=== PATIENT | female | born 1980 | race Caucasian/White ===

== ENCOUNTER → 2018-10-12 | Outpatient (CLI) | payer MEDICAID ==
[~2018-10-12] MED LIST: CEFPODOXIME PR200 M1; FOLIC ACID1 MG; IBUPROFEN 400400 M2 PO; PROTONIX40 M2; RANITIDINE 150150 M1 PO; TUMS PO; VITAMIN B-1100 M1
[2018-10-12 16:42] LABS: ABSOLUTE EOSINOPHILS 0.2 thou/uL (0.0-0.7); ABSOLUTE LYMPHOCYTES 1.1 thou/uL (0.8-5.3); ABSOLUTE MONOCYTES 0.3 thou/uL (0.0-1.2); ABSOLUTE NEUTROPHILS 1.7 thou/uL (1.6-8.1); BASOPHILS 0.9 %; EOSINOPHILS 4.8 %; HEMATOCRIT 30.7 % (37.0-47.0); HEMOGLOBIN 10.5 gm/dL (12.0-15.0); LYMPHOCYTES 32.9 %; MCH 32.2 pg (26.0-34.0); MCHC 34.3 g/dL (28.0-37.0); MCV 93.8 fL (80.0-100.0); MONOCYTES 8.2 %; MPV 6.8 fl. (7.2-11.1); NUCLEATED RBCS 0 /100WBC; PLATELET COUNT* 146 thou/uL (150-400); POLYS 53.2 %; RBC 3.27 mil/uL (4.20-5.00); RDW-CV 13.8 % (10.5-14.5); WBC 3.2 thou/uL (4.0-11.0)
[2018-10-12 16:50] LABS: INR 1.3; PROTIME 13.4 Seconds (9.20-11.50)
[2018-10-12 16:57] LABS: ALBUMIN 3.5 g/dL (3.4-5.0); CREATININE 0.9 mg/dL (0.6-1.3); POTASSIUM 4.1 mmol/L (3.5-5.1); TOTAL BILIRUBIN 1.7 mg/dL (<0.1-1.0); TOTAL PROTEIN 8.7 g/dL (6.4-8.2)
== END ==
LOC: M.LAB 16:26
PROVIDERS: Internal Medicine Gastroenterology
DX: K70.30 Alcoholic cirrhosis of liver without ascites (principal)

== ENCOUNTER 2018-11-09 13:32 | Inpatient (IN) | payer MEDICAID ==
[2018-11-09] VITALS (11 sets, daily range): BP systolic 113–138; BP diastolic 56–74
[~2018-11-09] VITALS: Ht 175.3 cm; Wt 52.6 kg
[~2018-11-09 13:32] MED LIST changes: -ALDACTONE100 MG PO; -BACLOFEN 10MG T10 MG PO; -CIPRO500 MG PO; -ENSURE COMPACT118 ML PO; -ERGOCALCIF50000 UNIT PO; -FOLIC ACID1 MG PO; -HUMALOG100 UNIT/1 SUBQ; -LACTULOSE10 GM/152 PO; -LANTUS SUBQ; -LASIX 40 MG TAB40 M2 PO; -NEURONTIN 300300 M1 PO; -ONDANSETRON HCL4 M2 PO; -PANCREALIPASE PO; -PROBIOTIC1 EAC1 PO; -TRAMADOL 50 MG50 MG PO; -VITAMIN B-1100 M1 PO; -XIFAXAN550 M1 PO; -ZINC SULFATE 2220 M1 PO
[2018-11-09 14:23] LABS: ABSOLUTE EOSINOPHILS 0.1 thou/uL (0.0-0.7); ABSOLUTE LYMPHOCYTES 0.5 thou/uL (0.8-5.3); ABSOLUTE MONOCYTES 0.1 thou/uL (0.0-1.2); ABSOLUTE NEUTROPHILS 1.1 thou/uL (1.6-8.1); BASOPHILS 1.3 %; EOSINOPHILS 3.8 %; HEMATOCRIT 31.5 % (37.0-47.0); HEMOGLOBIN 10.3 gm/dL (12.0-15.0); LYMPHOCYTES 25.1 %; MCH 30.6 pg (26.0-34.0); MCHC 32.6 g/dL (28.0-37.0); MCV 93.8 fL (80.0-100.0); MONOCYTES 7.2 %; MPV 8.8 fl. (7.2-11.1); NUCLEATED RBCS 0 /100WBC; PLATELET COUNT* 89 thou/uL (150-400); POLYS 62.6 %; RBC 3.35 mil/uL (4.20-5.00); RDW-CV 13.7 % (10.5-14.5)
[2018-11-09 14:25] LABS: WBC 1.8 thou/uL (4.0-11.0)
[2018-11-09 14:28] LABS: APTT 32.4 Seconds (25.0-31.3); INR 1.3; PROTIME 13.3 Seconds (9.20-11.50)
[2018-11-09] MEDS ORDERED: BACLOFEN 10MG T10 MG PO (14:31)
[2018-11-09] MEDS ORDERED: ENSURE COMPACT118 ML PO (14:33)
[2018-11-09] MEDS ORDERED: CIPRO500 MG PO (14:33)
[2018-11-09] MEDS ORDERED: ERGOCALCIF50000 UNIT PO (14:34)
[2018-11-09] MEDS ORDERED: FOLIC ACID1 MG PO (14:34)
[2018-11-09] MEDS ORDERED: LASIX 40 MG TAB40 M2 PO (14:34)
[2018-11-09] MEDS ORDERED: PROBIOTIC1 EAC1 PO (14:35)
[2018-11-09] MEDS ORDERED: NEURONTIN 300300 M1 PO (14:35)
[2018-11-09] MEDS ORDERED: ONDANSETRON HCL4 M2 PO (14:36)
[2018-11-09] MEDS ORDERED: LACTULOSE10 GM/152 PO (14:36)
[2018-11-09] MEDS ORDERED: XIFAXAN550 M1 PO (14:37)
[2018-11-09] MEDS ORDERED: PANCREALIPASE PO (14:37)
[2018-11-09] MEDS ORDERED: VITAMIN B-1100 M1 PO (14:38)
[2018-11-09] MEDS ORDERED: ALDACTONE100 MG PO (14:38)
[2018-11-09] MEDS ORDERED: TRAMADOL 50 MG50 MG PO (14:39)
[2018-11-09] MEDS ORDERED: ZINC SULFATE 2220 M1 PO (14:39)
[2018-11-09 14:42] LABS: ANION GAP 8 mmol/L (7-16); BUN 23 mg/dL (7-18); CALCIUM 9.4 mg/dL (8.5-10.1); CHLORIDE 86 mmol/L (98-107); CO2 26 mmol/L (21-32); CREATININE 1.5 mg/dL (0.6-1.3); POTASSIUM 4.3 mmol/L (3.5-5.1); SODIUM 120 mmol/L (136-145)
[2018-11-09 14:45] LABS: GLUCOSE 998 mg/dL (70-99)
[2018-11-09 14:49] LABS: ALBUMIN 3.4 g/dL (3.4-5.0); ALKALINE PHOSPHATASE 262 U/L (46-116); NT-PRO BRAIN NAT PEPTIDE 61 pg/mL (<300); SGOT 27 U/L (15-37); SGPT 26 U/L (30-65); TOTAL BILIRUBIN 1.5 mg/dL (<0.1-1.0); TOTAL PROTEIN 8.1 g/dL (6.4-8.2); TROPONIN-I LEVEL <0.06 ng/mL (<0.06)
[2018-11-09 15:16] LABS: PCO2 34.1 mmHg (35.0-45.0); PO2 96.5 mmHg (75.0-100.0); pH 7.418 (7.340-7.450)
[2018-11-09 15:17] LABS: BE -2.4 mmol/L (-2 to +3); HCO3 21.5 mmol/L (22.0-26.0)
[2018-11-09 16:20] LABS: URINE BILIRUBIN NEGATIVE (Negative); URINE BLOOD NEGATIVE (Negative); URINE CLARITY CLEAR; URINE COLOR YELLOW; URINE GLUCOSE-RANDOM 3+ (Negative); URINE KETONES NEGATIVE (Negative); URINE LEUKOCYTES-REFLEX NEGATIVE (Negative); URINE NITRITE-REFLEX NEGATIVE (Negative); URINE PROTEIN NEGATIVE (Negative); URINE SPECIFIC GRAVITY <= 1.005 (1.005-1.030); URINE UROBILINOGEN 0.2 E.U./dl (0.2-1.0)
[2018-11-09 18:31] LABS: MAGNESIUM 1.5 mg/dL (1.8-2.4)
--- NOTE | 2018-11-09 19:22 | NUR ---
PATIENT ADMITTED TO ROOM 6 IN ICU. AT BEDSIDE AT THIS TIME. PAIN IS BETTER MANAGED AT THIS TIME. ALL QUESTIONS ANSWERED. NO NAUSEA OR SHORTNESS OF AIR. INSULIN GTT INFUSING WITH BLOOD SUGAR CHECKS Q1H. FLUIDS INFUSING. BED IN LOWEST POSITION, CALL LIGHT IN REACH.
--- NOTE | 2018-11-09 21:55 | NUR ---
pt. taken via wheelchair to ct at this time.
[2018-11-10] VITALS (17 sets, daily range): BP systolic 103–127; BP diastolic 45–70
[2018-11-10 03:27] LABS: ABSOLUTE EOSINOPHILS 0.1 thou/uL (0.0-0.7); ABSOLUTE LYMPHOCYTES 0.7 thou/uL (0.8-5.3); ABSOLUTE MONOCYTES 0.2 thou/uL (0.0-1.2); ABSOLUTE NEUTROPHILS 1.2 thou/uL (1.6-8.1); BASOPHILS 0.6 %; EOSINOPHILS 4.9 %; HEMATOCRIT 25.8 % (37.0-47.0); LYMPHOCYTES 30.4 %; MCH 30.7 pg (26.0-34.0); MONOCYTES 8.7 %; MPV 8.1 fl. (7.2-11.1); NUCLEATED RBCS 0 /100WBC; PLATELET COUNT* 82 thou/uL (150-400); POLYS 55.4 %; RBC 2.94 mil/uL (4.20-5.00); RDW-CV 13.5 % (10.5-14.5); WBC 2.2 thou/uL (4.0-11.0)
[2018-11-10 03:28] LABS: MCV 87.7 fL (80.0-100.0)
[2018-11-10 03:33] LABS: CALCIUM 8.5 mg/dL (8.5-10.1); CREATININE 0.9 mg/dL (0.6-1.3); MAGNESIUM 1.7 mg/dL (1.8-2.4)
[2018-11-10 03:44] LABS: POTASSIUM 3.2 mmol/L (3.5-5.1)
--- NOTE | 2018-11-10 05:34 | NUR ---
PT. PROGRESSING TOWARDS GOALS. HAS SLEPT WELL THIS SHIFT. INSULIN GTT REMAINS AT 1 UNIT/HR. UP TO BEDSIDE COMMODE STAND BY ASSIST. PT. TAKEN TO CT THIS SHIFT, CT HEAD NEGATIVE. DR. COREAS NOTIFIED FOR CLARIFICATION ON IV FLUIDS. POTASSIUM/MAGNESIUM REPLACING AT THIS TIME. CALL LIGHT IN REACH, WILL CONTINUE TO MONITOR.
[2018-11-10 09:01] LABS: ALBUMIN 2.8 g/dL (3.4-5.0); CALCIUM 8.6 mg/dL (8.5-10.1); CREATININE 0.8 mg/dL (0.6-1.3); MAGNESIUM 2.1 mg/dL (1.8-2.4); TOTAL BILIRUBIN 1.7 mg/dL (<0.1-1.0); TOTAL PROTEIN 6.7 g/dL (6.4-8.2)
[2018-11-10 09:22] LABS: POTASSIUM 4.3 mmol/L (3.5-5.1)
--- NOTE | 2018-11-10 10:26 | EKG ---
[place] [address] ELECTROCARDIOGRAM REPORT Name: JAZIEL SANTOS Room: [address] ADM IN M.R.#: [id number] Admission: 11/09/18 Attend Phys: Bruce Mcclelland Discharge: Date of : 76 Report #: [id number] THIS REPORT FOR: //name// [facility] ED Test Date: 2018-11-09 Test Time: 14:44:50 Pat Name: JAZIEL SANTOS Department: Room: [facility] Gender: F Director Of Sustainability Programs: : 1980 Requested By: Kevyn Turner Order Number: [id number] MD: Buster Iraheta Measurements Intervals [place] Rate: 81 P: 43 IA: 130 QRS: -10 QRSD: 90 T: 50 QT: 406 QTc: 472 Interpretive Statements Sinus rhythm Probable left atrial enlargement ST elev, probable normal early repol pattern Baseline wander in lead(s) V1 No previous ECG available for comparison Electronically Signed On 11-10-2018 10:26:20 [employer] by Buster Iraheta [email or web address] <ELECTRONICALLY SIGNED> By: Buster Iraheta MD, [facility] 11/10/18 1026 1444 [id number] Buster Iraheta MD, [facility] /EPI
[2018-11-10 15:11] LABS: INSULIN 49.4 uIU/mL (2.6-24.9)
--- NOTE | 2018-11-10 16:14 | NUR ---
PT C/O OF BLURRY VISION. DR NOTIFIED. EXPECTED SYMPTOM DUE TO PT DIAGNOSIS.
--- NOTE | 2018-11-10 16:55 | NUR ---
RECEIVED ORDERS TO DISCONTINUE DKA PROTOCOL. PT ON SUBCUTANEOUS INSULIN. PT EDUCATED ON HOW TO DO A FINGER STICK WITH LANCET AND HOW TO ADMININSTER SUBCUTANEOUS INSULIN. PT ABLE TO DEMONSTRATE TO RN. PER DR ORTIZ EDUCATE PT ON ADMININSTRATION OF INSULIN. MOLD CLEANER GAVE PT EDUCATION ON DIABETES.
--- NOTE | 2018-11-10 18:15 | CON ---
[address] [address] CONSULTATION Name: JAZIEL SANTOS Room: [address] IN M.R.#: [id number] Admission: 11/09/18 Attend Phys: Bruce Mcclelland Discharge: Date of : 76 Report #: [id number] THIS REPORT FOR: //name// CC: Moses Bautista DATE OF SERVICE: 11/10/2018 ATTENDING PHYSICIAN: Benjy Bautista DO. REASON FOR EVALUATION: Sepsis in the setting of neutropenia and marked hyperglycemia. HISTORY OF PRESENT ILLNESS: Chart reviewed, patient examined. This 38-year-old with known history of alcoholic cirrhosis, who over the course of the last 3 weeks has been extremely thirsty, frequently urinating and drinking much excess fluids, also does have blurred vision and encephalopathy at times. She does have ongoing issues with lower extremity pain and cramping, on evaluation was found to be pancytopenic, perhaps attributable to her chronic liver disease. Chest x-ray was otherwise unrevealing. Urinalysis unremarkable. She was hyponatremic, although somewhat artificially low due to a markedly elevated glucose that was approaching 1000. Blood cultures were collected, they are sterile thus far. She started empirically on combination therapy with vancomycin and cefepime. On questioning, she denies significant pulmonary or gastrointestinal related complaints at this point. Does admit to the cramping leg pain. She notes no particular exposure history. ALLERGIES: None known. MEDICATIONS: Include insulin, furosemide, cholecalciferol, vancomycin, pantoprazole, ondansetron, ciprofloxacin, gabapentin, rifaximin and cefepime. PAST MEDICAL HISTORY: As described above, history of alcoholic liver disease with cirrhosis, pancreatitis, peripheral neuropathy, anorexia. SOCIAL HISTORY: Former smoker, has been sober for 6 months. Previous history of illicit drug use. FAMILY HISTORY: Noncontributory. REVIEW OF SYSTEMS: A 10-point review of system otherwise unremarkable except for the above noted in history of present illness. PHYSICAL EXAMINATION: GENERAL: She appears chronically ill, undernourished. [place] [address] CONSULTATION Name: JAZIEL SANTOS Room: [address] IN [facility]#: [id number] Admission: 11/09/18 Attend Phys: Bruce Mcclelland Discharge: Date of : 76 Report #: [id number] encephalopathic. She is in [id number] distress. VITAL SIGNS: Temperature 98.6, pulse 84, respirations 9, blood pressure 117/56. SKIN: Warm, dry, no rashes. HEENT: Poor dentition throughout. Extraocular muscles intact. NECK: Supple. LUNGS: Generally clear to auscultation. HEART: Regular. I do not appreciate a murmur. ABDOMEN: Soft, nontender, nondistended. Distal lower extremities without edema. GENITOURINARY: Deferred. RECTAL: Deferred. LABORATORY DATA: Blood cultures sterile thus far. His recent electrolytes: Sodium 135, potassium 4.3, chloride 106, bicarb is 25, anion gap of 4, BUN and creatinine 16 and 0.8, glucose of 148. Albumin 2, total protein 6.7. LFTs otherwise unremarkable and in distinction. Electrolytes yesterday afternoon, sodium 120, potassium 4.3, chloride 86, bicarbonate is 26, anion gap of 8, BUN and creatinine 23 and 1.5, glucose of 998. Chest x-ray unremarkable. PT of 13.0, INR 1.3. ASSESSMENT: Pancytopenia in the setting of a patient with chronic liver disease, presents with marked hyperglycemia. We will continue empiric antimicrobial therapy. We may back off on Cipro, just utilized cefepime and vancomycin for the moment. Await blood culture results. We will get imaging of her teeth that may well be a source of infection if indeed that bears out to be the case at this point. We will monitor expectantly, do some incentive spirometry. I do not suspect pneumonia or urinary tract infection at this point. <ELECTRONICALLY SIGNED> By: José Luis Kong MD 11/10/18 1815 1135 [id number] Kong MD /nt
--- NOTE | 2018-11-10 18:46 | NUR ---
BLOOD SUGAR 449. DR NOTIFIED PER PROTOCOL. NO ADDITIONAL ORDERS RECEIVED. PT ON SLIDING SCALE AND ABLE TO TRANSITION UP PER PROTOCOL.
[2018-11-10 19:11] LABS: GLYCOHEMOGLOBIN (HGB A1C) 13.3 % (4.8-5.6)
[2018-11-11] VITALS (7 sets, daily range): BP systolic 113–138; BP diastolic 56–90
[2018-11-11 05:27] LABS: ABSOLUTE EOSINOPHILS 0.1 thou/uL (0.0-0.7); ABSOLUTE LYMPHOCYTES 1.1 thou/uL (0.8-5.3); ABSOLUTE MONOCYTES 0.2 thou/uL (0.0-1.2); ABSOLUTE NEUTROPHILS 1.4 thou/uL (1.6-8.1); BASOPHILS 1.1 %; EOSINOPHILS 5.1 %; HEMATOCRIT 30.7 % (37.0-47.0); HEMOGLOBIN 10.5 gm/dL (12.0-15.0); LYMPHOCYTES 38.8 %; MCH 30.6 pg (26.0-34.0); MCHC 34.3 g/dL (28.0-37.0); MCV 89.2 fL (80.0-100.0); MONOCYTES 8.5 %; MPV 7.9 fl. (7.2-11.1); NUCLEATED RBCS 0 /100WBC; PLATELET COUNT* 112 thou/uL (150-400); POLYS 46.5 %; RBC 3.44 mil/uL (4.20-5.00); RDW-CV 13.8 % (10.5-14.5); WBC 2.9 thou/uL (4.0-11.0)
--- NOTE | 2018-11-11 05:32 | NUR ---
patient progressing towards goals. blood sugars trending down. complains of constant leg pain bilateral with burning and itching. pt able to get to bedside commode on her own. education given about diabetes. pt voiced understanding. will continue to monitor. no further complaints at this time. bed to lowest position. call light in place.
[2018-11-11 05:44] LABS: CALCIUM 9.3 mg/dL (8.5-10.1); CREATININE 0.9 mg/dL (0.6-1.3); POTASSIUM 3.9 mmol/L (3.5-5.1); TOTAL BILIRUBIN 1.2 mg/dL (<0.1-1.0); TOTAL PROTEIN 7.5 g/dL (6.4-8.2)
[2018-11-11] MEDS ORDERED: HUMALOG100 UNIT/1 SUBQ ×2 (09:58→09:59)
[2018-11-11] MEDS ORDERED: LANTUS SUBQ (10:04)
--- NOTE | 2018-11-11 11:29 | NUR ---
VSS, ASSUMED CARE OF PT IN THE AM, ASSESSMENT PERFORMED AND CHARTED, FALL PRECAUTIONS IN PLACE AND CALL LIGHT IN REACH, PT IS TRACING SR ON THE MONITOR, ON RA, UP AD MADALYN, DENIES ANY PAIN THIS AM, PT GOAL IS TO D/C TO HOME, I HAVE BEEN GIVEN D/C ORDERS, FILLED OUT D/C MEDS/INSTRUCTIONS, TOOK OUT IV'S AND HELPS GATHERED PT BELONGINGS, PROVITED SCRIPTS AND DIABETIC EDU/ TOOLS. WILL HOURLY ROUNDS COMPLETED AND WILL FOLLOW WITH PLANE OF CARE.
[2018-11-11 23:10] LABS: C-PEPTIDE 1.6 ng/mL (1.1-4.4)
== END 2018-11-11 11:20 | disposition home or self-care (01) | DRG 638 ==
LOC: M.ERS 13:32 → M.ICU 15:42 → M.TBA-ER 15:42 → M.ICU 16:19
PROVIDERS: Family Medicine; ADMIT Internal Medicine
PROC: 02HV33Z Insertion of Infusion Device into Superior Vena Cava, Percutaneous Approach (ICD-10-PCS; principal; 2018-11-09)
DX: E11.00 Type 2 diabetes mellitus with hyperosmolarity without nonketotic hyperglycemic-hyperosmolar coma (NKHHC) (principal); E87.1 Hypo-osmolality and hyponatremia; D61.818 Other pancytopenia; E11.10 Type 2 diabetes mellitus with ketoacidosis without coma; K70.30 Alcoholic cirrhosis of liver without ascites; K72.10 Chronic hepatic failure without coma; E87.6 Hypokalemia; Z87.891 Personal history of nicotine dependence; Z79.899 Other long term (current) drug therapy

== ENCOUNTER → 2018-11-09 | Outpatient (CLI) | payer MEDICAID ==
[~2018-11-09] MED LIST changes: +ALDACTONE100 MG PO; +BACLOFEN 10MG T10 MG PO; +CIPRO500 MG PO; +ENSURE COMPACT118 ML PO; +ERGOCALCIF50000 UNIT PO; +FOLIC ACID1 MG PO; +HUMALOG100 UNIT/1 SUBQ; +LACTULOSE10 GM/152 PO; +LANTUS SUBQ; +LASIX 40 MG TAB40 M2 PO; +NEURONTIN 300300 M1 PO; +ONDANSETRON HCL4 M2 PO; +PANCREALIPASE PO; +PROBIOTIC1 EAC1 PO; +TRAMADOL 50 MG50 MG PO; +VITAMIN B-1100 M1 PO; +XIFAXAN550 M1 PO; +ZINC SULFATE 2220 M1 PO
[2018-11-09 11:10] LABS: ABSOLUTE EOSINOPHILS 0.1 thou/uL (0.0-0.7); ABSOLUTE LYMPHOCYTES 0.6 thou/uL (0.8-5.3); ABSOLUTE MONOCYTES 0.2 thou/uL (0.0-1.2); ABSOLUTE NEUTROPHILS 1.5 thou/uL (1.6-8.1); BASOPHILS 1.2 %; EOSINOPHILS 4.4 %; HEMATOCRIT 32.6 % (37.0-47.0); HEMOGLOBIN 10.9 gm/dL (12.0-15.0); LYMPHOCYTES 24.6 %; MCH 30.3 pg (26.0-34.0); MCHC 33.3 g/dL (28.0-37.0); MONOCYTES 8.3 %; MPV 8.4 fl. (7.2-11.1); NUCLEATED RBCS 0 /100WBC; PLATELET COUNT* 105 thou/uL (150-400); POLYS 61.5 %; RBC 3.59 mil/uL (4.20-5.00); WBC 2.4 thou/uL (4.0-11.0)
[2018-11-09 11:13] LABS: INR 1.3
[2018-11-09 11:18] LABS: ALBUMIN 3.5 g/dL (3.4-5.0); CALCIUM 10.1 mg/dL (8.5-10.1); CREATININE 1.4 mg/dL (0.6-1.3); POTASSIUM 4.5 mmol/L (3.5-5.1); TOTAL BILIRUBIN 1.5 mg/dL (<0.1-1.0); TOTAL PROTEIN 8.5 g/dL (6.4-8.2)
== END ==
LOC: M.LAB 10:37
PROVIDERS: Internal Medicine Gastroenterology
DX: K70.30 Alcoholic cirrhosis of liver without ascites (principal)

== ENCOUNTER → 2018-11-13 | Outpatient (CLI) | payer MEDICAID ==
[~2018-11-13] MED LIST changes: +ALDACTONE100 MG PO; +BACLOFEN 10MG T10 MG PO; +CIPRO500 MG PO; +ENSURE COMPACT118 ML PO; +ERGOCALCIF50000 UNIT PO; +FOLIC ACID1 MG PO; +HUMALOG100 UNIT/1 SUBQ; +LACTULOSE10 GM/152 PO; +LANTUS SUBQ; +LASIX 40 MG TAB40 M2 PO; +NEURONTIN 300300 M1 PO; +ONDANSETRON HCL4 M2 PO; +PANCREALIPASE PO; +PROBIOTIC1 EAC1 PO; +TRAMADOL 50 MG50 MG PO; +VITAMIN B-1100 M1 PO; +XIFAXAN550 M1 PO; +ZINC SULFATE 2220 M1 PO
[2018-11-13 16:40] LABS: ABSOLUTE EOSINOPHILS 0.2 thou/uL (0.0-0.7); ABSOLUTE LYMPHOCYTES 0.7 thou/uL (0.8-5.3); ABSOLUTE MONOCYTES 0.2 thou/uL (0.0-1.2); ABSOLUTE NEUTROPHILS 1.4 thou/uL (1.6-8.1); BASOPHILS 0.9 %; EOSINOPHILS 7.3 %; HEMATOCRIT 29.8 % (37.0-47.0); HEMOGLOBIN 9.9 gm/dL (12.0-15.0); LYMPHOCYTES 28.8 %; MCH 29.7 pg (26.0-34.0); MCHC 33.2 g/dL (28.0-37.0); MCV 89.5 fL (80.0-100.0); MPV 7.4 fl. (7.2-11.1); NUCLEATED RBCS 0 /100WBC; PLATELET COUNT* 121 thou/uL (150-400); RBC 3.33 mil/uL (4.20-5.00); RDW-CV 13.9 % (10.5-14.5); WBC 2.6 thou/uL (4.0-11.0)
[2018-11-13 16:53] LABS: ALBUMIN 3.2 g/dL (3.4-5.0); CALCIUM 9.5 mg/dL (8.5-10.1); CREATININE 0.9 mg/dL (0.6-1.3); POTASSIUM 3.5 mmol/L (3.5-5.1); TOTAL BILIRUBIN 1.2 mg/dL (<0.1-1.0); TOTAL PROTEIN 7.8 g/dL (6.4-8.2)
== END ==
LOC: M.LAB 16:20
PROVIDERS: Internal Medicine
DX: K86.1 Other chronic pancreatitis (principal); F10.10 Alcohol abuse, uncomplicated

== ENCOUNTER → 2018-12-25 | Outpatient (CLI) | payer MEDICAID ==
[2018-12-25 08:46] LABS: ABSOLUTE EOSINOPHILS 0.1 thou/uL (0.0-0.7); ABSOLUTE LYMPHOCYTES 0.7 thou/uL (0.8-5.3); ABSOLUTE MONOCYTES 0.2 thou/uL (0.0-1.2); ABSOLUTE NEUTROPHILS 1.1 thou/uL (1.6-8.1); BASOPHILS 1.2 %; EOSINOPHILS 3.6 %; HEMOGLOBIN 10.6 gm/dL (12.0-15.0); LYMPHOCYTES 33.5 %; MCH 26.1 pg (26.0-34.0); MCV 81.7 fL (80.0-100.0); MONOCYTES 7.2 %; NUCLEATED RBCS 0 /100WBC; PLATELET COUNT* 132 thou/uL (150-400); POLYS 54.5 %; RBC 4.04 mil/uL (4.20-5.00); RDW-CV 16.1 % (10.5-14.5); WBC 2.1 thou/uL (4.0-11.0)
[2018-12-25 08:53] LABS: INR 1.3; PROTIME 12.8 Seconds (9.20-11.50)
[2018-12-25 08:57] LABS: CREATININE 0.9 mg/dL (0.6-1.3); POTASSIUM 3.6 mmol/L (3.5-5.1); TOTAL BILIRUBIN 0.7 mg/dL (<0.1-1.0); TOTAL PROTEIN 7.3 g/dL (6.4-8.2)
== END ==
LOC: M.LAB 08:25
PROVIDERS: Internal Medicine Gastroenterology
DX: K70.30 Alcoholic cirrhosis of liver without ascites (principal)

== ENCOUNTER → 2019-03-01 | Outpatient (CLI) | payer MEDICAID ==
[2019-03-01 06:40] LABS: ABSOLUTE EOSINOPHILS 0.1 thou/uL (0.0-0.7); ABSOLUTE LYMPHOCYTES 1.2 thou/uL (0.8-5.3); ABSOLUTE MONOCYTES 0.2 thou/uL (0.0-1.2); ABSOLUTE NEUTROPHILS 1.2 thou/uL (1.6-8.1); EOSINOPHILS 3.7 %; HEMATOCRIT 37.5 % (37.0-47.0); HEMOGLOBIN 12.2 gm/dL (12.0-15.0); LYMPHOCYTES 43.4 %; MCH 26.3 pg (26.0-34.0); MCHC 32.4 g/dL (28.0-37.0); MCV 81.1 fL (80.0-100.0); MONOCYTES 7.9 %; MPV 7.4 fl. (7.2-11.1); NUCLEATED RBCS 0 /100WBC; PLATELET COUNT* 105 thou/uL (150-400); RBC 4.63 mil/uL (4.20-5.00); RDW-CV 19.3 % (10.5-14.5); WBC 2.8 thou/uL (4.0-11.0)
[2019-03-01 06:48] LABS: INR 1.2; PROTIME 12.7 Seconds (9.20-11.50)
[2019-03-01 07:03] LABS: ALBUMIN 3.7 g/dL (3.4-5.0); CALCIUM 9.3 mg/dL (8.5-10.1); CREATININE 0.8 mg/dL (0.6-1.3); TOTAL BILIRUBIN 0.6 mg/dL (<0.1-1.0); TOTAL PROTEIN 7.9 g/dL (6.4-8.2)
== END ==
LOC: M.LAB 06:19
PROVIDERS: Internal Medicine Gastroenterology
DX: K70.30 Alcoholic cirrhosis of liver without ascites (principal)

== ENCOUNTER → 2019-06-21 | Outpatient (CLI) | payer MEDICAID | LOC: M.ULTRA 06-19 07:30 | DX: K70.31 Alcoholic cirrhosis of liver with ascites (principal); R16.1 Splenomegaly, not elsewhere classified ==

== ENCOUNTER → 2019-08-10 | Outpatient (CLI) | payer MEDICAID | LOC: M.ULTRA 13:27 | PROVIDERS: Internal Medicine | DX: M79.89 Other specified soft tissue disorders (principal); E11.9 Type 2 diabetes mellitus without complications ==

== ENCOUNTER → 2019-09-10 | Outpatient (CLI) | payer MEDICAID ==
[2019-09-10 06:26] LABS: POTASSIUM 4.1 mmol/L (3.5-5.1)
== END ==
LOC: M.LAB 04:28
PROVIDERS: Anesthesiology
DX: E87.6 Hypokalemia (principal)

== ENCOUNTER → 2019-10-15 | Outpatient (CLI) | payer MEDICAID | LOC: M.ULTRA 07:29 | DX: K70.31 Alcoholic cirrhosis of liver with ascites (principal) ==

== ENCOUNTER → 2019-10-25 | Outpatient (CLI) | payer MEDICAID | LOC: M.LAB 12:43 | DX: Z12.31 Encounter for screening mammogram for malignant neoplasm of breast (principal) ==

== ENCOUNTER → 2019-10-31 | Outpatient (CLI) | payer MEDICAID | LOC: M.ULTRA 13:00 | DX: R92.2 Inconclusive mammogram (principal) ==

== ENCOUNTER → 2020-05-20 | Outpatient (CLI) | payer BC, MEDICAID | LOC: M.ULTRA 07:30 | DX: K70.31 Alcoholic cirrhosis of liver with ascites (principal); K72.90 Hepatic failure, unspecified without coma ==

== ENCOUNTER → 2020-06-16 | Outpatient (CLI) | payer BC, MEDICAID ==
[2020-06-16 17:15] LABS: ALBUMIN 4.5 g/dL (3.4-5.0); CALCIUM 8.9 mg/dL (8.5-10.1); CREATININE 0.9 mg/dL (0.6-1.3); POTASSIUM 4.1 mmol/L (3.5-5.1); TOTAL BILIRUBIN 0.7 mg/dL (<0.1-1.0); TOTAL PROTEIN 8.1 g/dL (6.4-8.2)
== END ==
LOC: M.LAB 16:35
PROVIDERS: ATTEND Internal Medicine Gastroenterology
DX: Z20.828 Contact with and (suspected) exposure to other viral communicable diseases (principal); I85.00 Esophageal varices without bleeding; K74.60 Unspecified cirrhosis of liver

== ENCOUNTER → 2020-08-25 | Outpatient (CLI) | payer BC, MEDICAID ==
[2020-08-25 11:37] LABS: ABSOLUTE EOSINOPHILS 0.1 thou/uL (0.0-0.7); ABSOLUTE LYMPHOCYTES 1.4 thou/uL (0.8-5.3); ABSOLUTE MONOCYTES 0.3 thou/uL (0.0-1.2); ABSOLUTE NEUTROPHILS 1.8 thou/uL (1.6-8.1); BASOPHILS 0.9 %; EOSINOPHILS 3.4 %; HEMATOCRIT 40.3 % (37.0-47.0); LYMPHOCYTES 38.7 %; MCH 30.4 pg (26.0-34.0); MCHC 34.8 g/dL (28.0-37.0); MCV 87.4 fL (80.0-100.0); MONOCYTES 7.2 %; MPV 6.7 fl. (7.2-11.1); NUCLEATED RBCS 0 /100WBC; PLATELET COUNT* 133 thou/uL (150-400); POLYS 49.8 %; RBC 4.61 mil/uL (4.20-5.00); RDW-CV 14.1 % (10.5-14.5); WBC 3.5 thou/uL (4.0-11.0)
[2020-08-25 11:49] LABS: ALBUMIN 4.2 g/dL (3.4-5.0); CREATININE 0.9 mg/dL (0.6-1.3); POTASSIUM 4.2 mmol/L (3.5-5.1); TOTAL BILIRUBIN 0.5 mg/dL (<0.1-1.0); TOTAL PROTEIN 8.2 g/dL (6.4-8.2)
[2020-08-25 12:10] LABS: INR 1.2; PROTIME 12.4 Seconds (9.20-11.50)
== END ==
LOC: M.LAB 11:13
PROVIDERS: ATTEND Internal Medicine Gastroenterology
DX: D50.9 Iron deficiency anemia, unspecified (principal); K70.30 Alcoholic cirrhosis of liver without ascites

== ENCOUNTER → 2021-01-09 | Outpatient (CLI) | payer BC, MEDICAID | LOC: M.RAD 12:46 | PROVIDERS: ATTEND Registered Nurse Diabetes Educator | DX: Z12.31 Encounter for screening mammogram for malignant neoplasm of breast (principal) ==

== ENCOUNTER → 2021-02-27 | Outpatient (CLI) | payer BC, MEDICARE, MEDICAID ==
[2021-02-27 08:34] LABS: ABSOLUTE EOSINOPHILS 0.2 thou/uL (0.0-0.7); ABSOLUTE LYMPHOCYTES 1.3 thou/uL (0.8-5.3); ABSOLUTE MONOCYTES 0.2 thou/uL (0.0-1.2); ABSOLUTE NEUTROPHILS 1.8 thou/uL (1.6-8.1); BASOPHILS 1.2 %; HEMATOCRIT 40.9 % (37.0-47.0); HEMOGLOBIN 13.7 gm/dL (12.0-15.0); LYMPHOCYTES 36.3 %; MCH 30.6 pg (26.0-34.0); MCHC 33.6 g/dL (28.0-37.0); MCV 91.1 fL (80.0-100.0); MONOCYTES 6.6 %; MPV 6.8 fl. (7.2-11.1); NUCLEATED RBCS 0 /100WBC; PLATELET COUNT* 146 thou/uL (150-400); POLYS 50.9 %; RBC 4.49 mil/uL (4.20-5.00); RDW-CV 13.7 % (10.5-14.5); WBC 3.5 thou/uL (4.0-11.0)
[2021-02-27 08:41] LABS: INR 1.1; PROTIME 12.1 Seconds (9.20-11.50)
[2021-02-27 08:44] LABS: ALBUMIN 4.3 g/dL (3.4-5.0); CALCIUM 9.3 mg/dL (8.5-10.1); CREATININE 0.8 mg/dL (0.6-1.3); POTASSIUM 4.7 mmol/L (3.5-5.1); TOTAL BILIRUBIN 0.5 mg/dL (<0.1-1.0); TOTAL PROTEIN 7.9 g/dL (6.4-8.2)
== END ==
LOC: M.ULTRA 07:30
PROVIDERS: ATTEND Internal Medicine Gastroenterology
DX: R16.1 Splenomegaly, not elsewhere classified (principal); K74.60 Unspecified cirrhosis of liver

== ENCOUNTER → 2021-03-19 | Outpatient (CLI) | payer BC, MEDICARE, MEDICAID | LOC: M.MRI 13:12 | PROVIDERS: ATTEND Registered Nurse Diabetes Educator | DX: M47.816 Spondylosis without myelopathy or radiculopathy, lumbar region (principal); K21.00 Gastro-esophageal reflux disease with esophagitis, without bleeding; G62.9 Polyneuropathy, unspecified; R29.898 Other symptoms and signs involving the musculoskeletal system; E11.41 Type 2 diabetes mellitus with diabetic mononeuropathy; F41.9 Anxiety disorder, unspecified; F32.9 Major depressive disorder, single episode, unspecified; F98.8 Other specified behavioral and emotional disorders with onset usually occurring in childhood and adolescence; R60.0 Localized edema ==

== ENCOUNTER → 2021-04-16 | Outpatient (CLI) | payer BC, MEDICARE, MEDICAID | LOC: M.ULTRA 08:00 | PROVIDERS: ATTEND Registered Nurse Diabetes Educator | DX: I65.22 Occlusion and stenosis of left carotid artery (principal); R93.89 Abnormal findings on diagnostic imaging of other specified body structures ==